=== PATIENT | male | born 1945 | race Caucasian/White ===

== ENCOUNTER 2022-12-13 08:26 | Day surgery (SDC) | payer MEDICARE ==
--- NOTE | 2022-12-13 07:44 | HP ---
DATE OF SURGERY: 12/13/2022 HISTORY OF PRESENT ILLNESS: The patient is a 77-year-old last colonoscopy was in 2002. He denies any bloody stools. No change in bowel movements. Family history negative for colon cancer. He is in need of screening colonoscopy. PAST MEDICAL HISTORY: Diabetes mellitus type II, history of atrial fibrillation, hypertension, hyperlipidemia. PAST SURGICAL HISTORY: Endoscopy in the past. He has no other surgeries reported. MEDICATIONS: Amlodipine, Novolin, Klor-Con, furosemide, metformin, atenolol, atorvastatin for some hyperlipidemia, benazepril, metolazone, sildenafil, hydrocodone, APAP, allopurinol, lorazepam. ALLERGIES: NKDA. FAMILY HISTORY: Heart disease, lung cancer but negative for colon cancer. SOCIAL HISTORY: Former smoker. REVIEW OF SYSTEMS: Fourteen systems reviewed. No chest pain or palpitations. Other systems negative or noncontributory as above and per preadmission questionnaire. PHYSICAL EXAMINATION: His BMI is 33.91. GENERAL: No acute distress. HEENT: Sclerae nonicteric. NECK: No JVD. CHEST: Equal excursion, nonlabored breathing. CVS: Regular rate and rhythm. ABDOMEN: Soft. No peritoneal signs. EXTREMITIES: No significant edema. NEURO: Alert, oriented, moving extremities symmetrically. RECTAL: Deferred timed to endoscopy exam. PSYCH: Appropriate mood and affect. IMPRESSION: He is in need of follow up screening colonoscopy. I feel he is a candidate. He was shown the risk sheet explained the procedure in detail including bleeding or infection, risk of bowel injury or perforation, risk of missed or nondiagnosis or incomplete exam possibly requiring barium enema, other studies or procedures, general risk of anesthesia or sedation, risk of bowel prep but not limited to, consent obtained. Will proceed with outpatient follow up colonoscopy.
[2022-12-13] MEDS ORDERED: Lactated Ringers 1,000 ML IV ONE (08:56)
[2022-12-13] MEDS ORDERED: Lactated Ringers 1,000 ML IV SCH (09:00)
[2022-12-13] MEDS ORDERED: DIPRIVAN 200 MG/20 ML IV ONE (10:50)
[2022-12-13] MEDS ORDERED: Xylocaine-Mpf 2% 5 Ml Vial ONE (10:51)
[2022-12-13 11:55] VITALS: O2SAT 96
[2022-12-13 12:07] VITALS: BP 156/87; PULSE 68
--- NOTE | 2022-12-13 13:43 | OP ---
SURGERY DATE/TIME: 12/13/2022 1103 PREOPERATIVE DIAGNOSIS: Need for screening colonoscopy, last colonoscopy back in 2002. POSTOPERATIVE DIAGNOSES: 1) ASA Class II. 2) Polyps and sessile polypoid lesions. 3) Fair bowel prep. 4) Withdrawal time approximately 10 minutes and 30 seconds. PROCEDURES: 1) Colonoscopy to cecum with cold biopsy of mucosa overlying question of lipomatous density ascending colon. 2) Multiple hot biopsies of sessile polypoid 1.5 cm lesion cecum. 3) Hot biopsy of smaller 3.5 mm polypoid lesion as well as hot biopsy polypectomy proximal ascending colon polyp approximately 3.5 mm in piecemeal fashion. 4) Hot biopsy hepatic flexure early polyp versus hyperplastic lesion. 5) Multiple hot biopsies of polypoid lesions proximal transverse colon with ink spot tattooing of location. 6) Hot biopsy polypectomy of two small polyps in the rectosigmoid area. SURGEON: Dr. Chris Parks. ANESTHESIA: MAC. ESTIMATED BLOOD LOSS: Minimal. INDICATIONS: As noted above. Risks and benefits explained in detail but not limited to and consent obtained. DESCRIPTION OF PROCEDURE AND FINDINGS: The patient is taken to the endoscopy room. MAC anesthesia induced. After official time out and no disagreement with planned procedure, digital rectal exam did not reveal any rectal masses. Video colonoscope passed up through the tortuous sigmoid, descending, transverse and ascending colon around to the cecum. Appendiceal orifice is documented. Ileocecal valve photo documented. Prep overall is fair with some liquidy semisolid stool throughout the colon slightly limiting the exam. There was a sessile polypoid lesion multiple hot biopsies were taken, this could not be safely removed all in one setting in the cecum about 1.5 cm. There was another small area about 3 to 3.5 mm removed with hot biopsy polypectomy. Another 3 mm area in the proximal ascending colon removed with hot biopsy polypectomy. Cold biopsy had been taken of the mucosa, question of submucosal area in the ascending colon. It had good hemostasis. Scope pulled back to hepatic flexure. There was small polyp there removed with hot biopsy polypectomy. Good hemostasis noted. In the proximal transverse colon, there is a polypoid lesion, whether raised, it looks like it had some adenomatous nature. Multiple hot biopsies were taken as well as ink spot tattooing of the distal edge. The scope was carefully withdrawn through the remainder of the transverse, descending colon over the next 10 to 10 minutes. In the rectosigmoid area, two small early polyps versus hyperplastic lesion removed with hot biopsy polypectomy. Good hemostasis was noted. The patient tolerated the procedure well. There were no immediate complications. Findings discussed with the family out in the waiting area including the possibility that we may recommend removing these areas surgically given the size of these lesions, will await final path determination.
== END 2022-12-13 12:20 | disposition home or self-care (01) ==
LOC: SDC 08:26
PROVIDERS: ATTEND Surgery
DX: Z12.11 Encounter for screening for malignant neoplasm of colon (principal); E11.9 Type 2 diabetes mellitus without complications; Z80.1 Family history of malignant neoplasm of trachea, bronchus and lung; K63.9 Disease of intestine, unspecified; D12.7 Benign neoplasm of rectosigmoid junction; D12.2 Benign neoplasm of ascending colon; D12.0 Benign neoplasm of cecum; D12.3 Benign neoplasm of transverse colon
CPT/HCPCS: 82947; 99100; J2704